=== PATIENT | male | born 1940 | race Caucasian/White ===

== ENCOUNTER → 2016-05-11 | Outpatient (REF) | payer MEDICARE, OTHER ==
[~2016-05-11] MED LIST: ALIS1TAB3 PO; AMLO1CAP8 PO; AMOX1TAB12 PO; ASPI-860 PO; ATN50T PO; ATOR10TA PO; ESZO3TAB11 PO; FURO-124 PO; MNTL10T PO; NEBI20TA2 PO; OMEG10005 PO; PANT40TA3 PO; POTA20PA3 PO; POTA20TA15 PO; [UNRECOGNIZED DRUG - CODE] PO
[2016-05-11 12:40] LABS: BASOPHILS % (AUTO) 1 % (0-2); EOSINOPHILS # (AUTO) 0.2 10^3uL; EOSINOPHILS % (AUTO) 4 % (0-4); LYMPHOCYTES # (AUTO) 1.3 X10^3; MEAN CORPUSCULAR HEMOGLOBIN 28.8 PG (26.0-34.0); MEAN CORPUSCULAR HGB CONC 33.9 g/dL (31.0-37.0); MEAN CORPUSCULAR VOLUME 85 FL (80-100); MEAN PLATELET VOLUME 11.4 FL (6.0-9.5); MONOCYTES # (AUTO) 0.5 X10^3; MONOCYTES % (AUTO) 10 % (3-11); NEUTROPHILS # (AUTO) 3.1 X10^3; NEUTROPHILS % (AUTO) 60 % (51-67); PLATELET COUNT 159 10^3uL (150-450); WHITE BLOOD COUNT 5.18 10^3uL (4.0-11.0)
[2016-05-11 12:53] LABS: ALBUMIN 4.1 g/dL (3.4-5.0); ANION GAP 13.1 MEQ/L (3-15); CALCULATED IONIZED CALCIUM 4.1 mg/dL (3.8-4.6); TOTAL PROTEIN 7.3 g/dL (6.4-8.5)
== END ==
LOC: LAB 12:07
PROVIDERS: ATTEND Family Medicine
DX: D50.8 Other iron deficiency anemias (principal); R10.84 Generalized abdominal pain; I97.3 Postprocedural hypertension
CPT/HCPCS: 80053; 82150; 83690; 85025; 86140

== ENCOUNTER → 2016-05-12 | Outpatient (CLI) | payer MEDICARE, OTHER ==
--- NOTE | 2016-05-12 11:35 | Diagnostic Imaging Report ---
INDICATION: Abdominal pain. PA and lateral views of the chest are obtained with comparison made study of 03/28/2015. FINDINGS: Heart size is at the upper limits of normal. Pulmonary vascularity is within normal limits. The lungs are clear and well expanded. There is no pneumothorax or consolidation. No significant pleural fluid is identified. There is mild diffuse thoracic spondylosis. IMPRESSION: Stable chest without acute abnormality or adverse change. Dictated by: Dictated on workstation # [id number]
== END ==
LOC: RAD 10:12
PROVIDERS: ATTEND Family Medicine
DX: R10.84 Generalized abdominal pain (principal)
CPT/HCPCS: 71020